=== PATIENT | male | born 2000 | race Caucasian/White ===

== ENCOUNTER 2018-07-04 10:35 | Emergency (ER) | payer OTHER ==
[~2018-07-04] VITALS: Ht 165.1 cm; Wt 59.0 kg
[~2018-07-04 10:35] MED LIST: BENTYL10 MG PO; CLARITIN10 MG PO; PRILOSEC20 MG PO; WYMOX500 MG PO; ZOFRAN ODT4 MG SL
[2018-07-04 10:38] VITALS: BP 138/87
[2018-07-04] MEDS ORDERED: FLONASE ALLERG9.9 ML NAS (11:38)
[2018-07-04] MEDS ORDERED: AMOXICILLIN500 M2 PO (11:38)
== END 2018-07-04 11:43 | disposition home or self-care (01) ==
LOC: ED 10:35
DX: J01.90 Acute sinusitis, unspecified (principal); Z79.899 Other long term (current) drug therapy